=== PATIENT | male | born 1970 | race Caucasian/White ===

== ENCOUNTER 2019-09-05 05:33 | Day surgery (SDC) | payer BC, OTHER ==
[~2019-09-05] VITALS: Ht 179.1 cm; Wt 123.9 kg
[2019-09-05] VITALS (12 sets, daily range): BP systolic 128–160; BP diastolic 70–96; PULSE 74–100; RESP 10–20; Ht 179.1 cm; Wt 123.9 kg
[~2019-09-05 05:33] MED LIST: BUPR150T6 PO; CHOL500010 PO; CYAN50008 PO; LEVA1.2527 NEB; LINA5TAB PO; METF-849 PO; MULTI PO; PRED20TA PO; PYRI100T2 PO; VALS320T2 PO
[2019-09-05] MEDS ORDERED: SOD CHLORIDE 0.9% 1,000 ML IV SCH (07:00)
[2019-09-05] MEDS ORDERED: PROPOFOL 20 ML ONE (07:13)
[2019-09-05] MEDS ORDERED: SUCCINYLCHOLINE CHLORIDE 100 MG/5 ML SYG IV ONE (07:13)
[2019-09-05] MEDS ORDERED: CEFAZOLIN 1 GM INJ ONE (07:13)
[2019-09-05] MEDS ORDERED: LIDOCAINE 2% (SDV) 5 ML INJ ONE (07:13)
[2019-09-05] MEDS ORDERED: ROCURONIUM 50 MG INJ ONE (07:13)
[2019-09-05] MEDS ORDERED: POLYMYXIN/BACITRACIN 1L IRRIG ONE (07:27)
[2019-09-05] MEDS ORDERED: BUPIVACAINE 0.25% (MPF) 30 ML INJ ONE (07:28)
[2019-09-05] MEDS ORDERED: METOCLOPRAMIDE 10 MG INJ ONE (07:54)
[2019-09-05] MEDS ORDERED: ONDANSETRON 4 MG INJ ONE (07:54)
[2019-09-05] MEDS ORDERED: DEXAMETHASONE 4 MG/ML 5 ML INJ ONE (07:54)
[2019-09-05] MEDS ORDERED: FAMOTIDINE 20 MG INJ ONE (07:55)
[2019-09-05] MEDS ORDERED: PHENYLephrine (100 MCG/ML) 10ML SYG ONE (08:06)
[2019-09-05] MEDS ORDERED: SUGAMMADEX SODIUM 200 MG/2 ML VIAL IV ONE (08:09)
[2019-09-05] MEDS ORDERED: HYDROmorphONE 1 MG/5 ML IV SYRINGE IV PRN ×3 (08:30)
[2019-09-05] MEDS ORDERED: ALBUTEROL 0.083% (NEB) 2.5 MG/3 ML AMP HHN PRN (08:30)
[2019-09-05] MEDS ORDERED: hydrALAzine 20 MG INJ IV PRN (08:30)
[2019-09-05] MEDS ORDERED: ONDANSETRON 4 MG INJ IV PRN ×2 (08:30→09:00)
[2019-09-05] MEDS ORDERED: MEPERIDINE 25 MG INJ IV PRN (08:30)
[2019-09-05] MEDS ORDERED: OXYCODONE/ACETAMINOPHEN (5/325) TAB PO PRN ×4 (08:30→09:00)
[2019-09-05] MEDS ORDERED: LABETALOL HCL 20MG INJ IV PRN (08:30)
[2019-09-05] MEDS ORDERED: morphine 2 MG INJ IV PRN (09:00)
== END 2019-09-05 10:45 | disposition home or self-care (01) ==
LOC: SDS 05:33
PROVIDERS: ATTEND Surgery
DX: K42.9 Umbilical hernia without obstruction or gangrene (principal); I10 Essential (primary) hypertension; E11.9 Type 2 diabetes mellitus without complications; E78.5 Hyperlipidemia, unspecified; I48.91 Unspecified atrial fibrillation; E66.01 Morbid (severe) obesity due to excess calories; Z68.38 Body mass index [BMI] 38.0-38.9, adult
CPT/HCPCS: 49585; 82962; 88302; C1781; J0690; J1100; J2175; J2370; J2405; J2765; J3010